=== PATIENT | male | born 1965 | race Caucasian/White ===

== ENCOUNTER → 2019-07-29 | Outpatient (CLI) | payer BC ==
[~2019-07-29] MED LIST: ATEN50TA PO; BENA40TA59 PO; DILT-10 PO
== END ==
LOC: WOUNDCARE 08:06
PROVIDERS: ATTEND Nurse Practitioner
DX: L97.523 Non-pressure chronic ulcer of other part of left foot with necrosis of muscle (principal); L89.893 Pressure ulcer of other site, stage 3
CPT/HCPCS: 11042

== ENCOUNTER → 2019-07-29 | Outpatient (CLI) | payer BC ==
[2019-07-29 09:54] LABS: BASOPHILS % (AUTO) 0 % (0-10); EOSINOPHILS # (AUTO) 0.2 10^3/uL (0.0-0.3); EOSINOPHILS % (AUTO) 3 % (0-10); HEMATOCRIT 43 % (40-54); HEMOGLOBIN 15.1 G/DL (13.3-17.7); LYMPHOCYTES # (AUTO) 1.9 X 10^3 (1.0-4.0); LYMPHOCYTES % (AUTO) 20 % (12-44); MEAN CORPUSCULAR HEMOGLOBIN 34 PG (25-34); MEAN CORPUSCULAR HGB CONC 35 G/DL (32-36); MEAN CORPUSCULAR VOLUME 97 FL (80-99); MEAN PLATELET VOLUME 9.6 FL (7.4-10.4); MONOCYTES # (AUTO) 0.5 X 10^3 (0.0-1.0); MONOCYTES % (AUTO) 5 % (0-12); NEUTROPHILS # (AUTO) 6.7 X 10^3 (1.8-7.8); NEUTROPHILS % (AUTO) 72 % (42-75); PLATELET COUNT 210 10^3/uL (130-400); RED CELL DISTRIBUTION WIDTH 12.3 % (10.0-14.5); WHITE BLOOD COUNT 9.3 10^3/uL (4.3-11.0)
[2019-07-29 10:09] LABS: BUN/CREATININE RATIO 20; CALCIUM 9.5 MG/DL (8.5-10.1); CARBON DIOXIDE 25 MMOL/L (21-32); CHLORIDE 108 MMOL/L (98-107); CREATININE SERUM 0.91 MG/DL (0.60-1.30); GFR ESTIMATED > 60; GLUCOSE 99 MG/DL (70-105); POTASSIUM 4.3 MMOL/L (3.6-5.0); SODIUM 142 MMOL/L (135-145)
== END ==
LOC: LAB 09:42
PROVIDERS: ATTEND Nurse Practitioner
DX: L97.523 Non-pressure chronic ulcer of other part of left foot with necrosis of muscle (principal); L89.893 Pressure ulcer of other site, stage 3
CPT/HCPCS: 36415; 80048; 84134; 85025

== ENCOUNTER → 2019-08-04 | Outpatient (CLI) | payer BC | LOC: WOUNDCARE 10:13 | PROVIDERS: ATTEND Surgery | DX: I96 Gangrene, not elsewhere classified (principal); L97.522 Non-pressure chronic ulcer of other part of left foot with fat layer exposed; G60.8 Other hereditary and idiopathic neuropathies | CPT/HCPCS: 11042; 87070; 87077; 87205 ==

== ENCOUNTER → 2019-08-12 | Outpatient (CLI) | payer BC | LOC: WOUNDCARE 10:52 | PROVIDERS: ATTEND Nurse Practitioner | DX: I96 Gangrene, not elsewhere classified (principal); L97.522 Non-pressure chronic ulcer of other part of left foot with fat layer exposed; G60.8 Other hereditary and idiopathic neuropathies | CPT/HCPCS: 11042 ==

== ENCOUNTER → 2019-08-19 | Outpatient (CLI) | payer BC | LOC: WOUNDCARE 10:45 | PROVIDERS: ATTEND Nurse Practitioner | DX: I96 Gangrene, not elsewhere classified (principal); L97.522 Non-pressure chronic ulcer of other part of left foot with fat layer exposed; G60.8 Other hereditary and idiopathic neuropathies | CPT/HCPCS: 11042 ==

== ENCOUNTER → 2019-08-26 | Outpatient (CLI) | payer BC | LOC: WOUNDCARE 10:46 | PROVIDERS: ATTEND Nurse Practitioner | DX: L97.522 Non-pressure chronic ulcer of other part of left foot with fat layer exposed (principal); G60.9 Hereditary and idiopathic neuropathy, unspecified; I96 Gangrene, not elsewhere classified | CPT/HCPCS: 11042 ==

== ENCOUNTER → 2019-08-28 | Outpatient (CLI) | payer BC | LOC: WOUNDCARE 09:51 | PROVIDERS: ATTEND Nurse Practitioner | DX: L97.522 Non-pressure chronic ulcer of other part of left foot with fat layer exposed (principal); G60.8 Other hereditary and idiopathic neuropathies; I96 Gangrene, not elsewhere classified | CPT/HCPCS: 29445 ==

== ENCOUNTER → 2019-09-02 | Outpatient (CLI) | payer BC | LOC: WOUNDCARE 10:49 | PROVIDERS: ATTEND Nurse Practitioner | DX: L97.522 Non-pressure chronic ulcer of other part of left foot with fat layer exposed (principal); G60.8 Other hereditary and idiopathic neuropathies; I96 Gangrene, not elsewhere classified | CPT/HCPCS: 11042 ==

== ENCOUNTER → 2019-09-09 | Outpatient (CLI) | payer BC | LOC: WOUNDCARE 10:53 | PROVIDERS: ATTEND Nurse Practitioner | DX: I96 Gangrene, not elsewhere classified (principal); L97.522 Non-pressure chronic ulcer of other part of left foot with fat layer exposed; G60.8 Other hereditary and idiopathic neuropathies | CPT/HCPCS: 11042 ==

== ENCOUNTER → 2019-09-16 | Outpatient (CLI) | payer BC | LOC: WOUNDCARE 10:55 | PROVIDERS: ATTEND Nurse Practitioner | DX: L97.522 Non-pressure chronic ulcer of other part of left foot with fat layer exposed (principal); G60.8 Other hereditary and idiopathic neuropathies; I96 Gangrene, not elsewhere classified | CPT/HCPCS: 11042 ==

== ENCOUNTER → 2019-09-23 | Outpatient (CLI) | payer BC | LOC: WOUNDCARE 10:45 | PROVIDERS: ATTEND Nurse Practitioner | DX: L97.522 Non-pressure chronic ulcer of other part of left foot with fat layer exposed (principal); G60.8 Other hereditary and idiopathic neuropathies; I96 Gangrene, not elsewhere classified | CPT/HCPCS: 11042 ==

== ENCOUNTER → 2019-09-30 | Outpatient (CLI) | payer BC | LOC: WOUNDCARE 10:55 | PROVIDERS: ATTEND Nurse Practitioner | DX: L97.522 Non-pressure chronic ulcer of other part of left foot with fat layer exposed (principal); G60.8 Other hereditary and idiopathic neuropathies; I96 Gangrene, not elsewhere classified ==

== ENCOUNTER → 2019-10-07 | Outpatient (CLI) | payer BC | LOC: WOUNDCARE 10:55 | PROVIDERS: ATTEND Nurse Practitioner | DX: L97.522 Non-pressure chronic ulcer of other part of left foot with fat layer exposed (principal); G60.8 Other hereditary and idiopathic neuropathies | CPT/HCPCS: 97597 ==

== ENCOUNTER → 2019-10-14 | Outpatient (CLI) | payer BC | LOC: WOUNDCARE 10:56 | PROVIDERS: ATTEND Nurse Practitioner | DX: I96 Gangrene, not elsewhere classified (principal); L97.522 Non-pressure chronic ulcer of other part of left foot with fat layer exposed; G60.8 Other hereditary and idiopathic neuropathies | CPT/HCPCS: 99212 ==

== ENCOUNTER → 2019-10-28 | Outpatient (CLI) | payer BC | LOC: WOUNDCARE 08:13 | PROVIDERS: ATTEND Nurse Practitioner | DX: I96 Gangrene, not elsewhere classified (principal); L97.522 Non-pressure chronic ulcer of other part of left foot with fat layer exposed; G60.8 Other hereditary and idiopathic neuropathies | CPT/HCPCS: 99213 ==

== ENCOUNTER → 2021-04-18 | Day surgery (SDC) | payer BC ==
[2021-04-18] VITALS (10 sets, daily range): BP systolic 93–131; BP diastolic 49–89
[~2021-04-18] VITALS: Ht 193 cm; Wt 113.5 kg
[~2021-04-18] MED LIST changes: +ACHD5005 PO; +ALLO300T2 PO; +ATEN25TA PO; +ATOR80TA64 PO; +BUPIVACAINE 0.25% 30 ML (SENSORCAINE) VIAL ONE; +C,E,1CAP PO; +CATHETER FLUSH 10 ML SYR IV PRN; +DILT300C49 PO; +EZET10TA49 PO; +HYDROcodone/APAP 5 MG/325 MG (LORTAB) TAB PO PRN; +LACTATED RINGERS 1,000 ML IV PRN; +LACTATED RINGERS 1,000 ML IV SCH; +LIDOCAINE/EPI 1%-1:100,000 (XYLOCAINE) 20ML ONE; +MELO15TA39 PO; +MEPERIDINE (DEMEROL) INJ 50 MG/ML IVP ONE; +ONDANSETRON 4 MG/2 ML (SDV) Z0FRAN IVP PRN; +VANCOMYCIN INJECTION 1,000 MG in NS (IVPB) 250 ML IV SCH; +fentaNYL INJ 100 MCG/2 ML AMP IVP ONE; +morphine INJ 10 MG/ML 1ML (SYR OR VIAL) IVP ONE
--- NOTE | 2021-04-18 07:37 | Progress Note-Pre Operative ---
Pre-Operative Progress Note H&P Reviewed The H&P was reviewed, patient examined and no changes noted. Date Seen by Provider: April 18, 2021 Time Seen by Provider: 07:36 Date H&P Reviewed: April 18, 2021 Time H&P Reviewed: 07:36 Pre-Operative Diagnosis: Hypertrophic Sesamoid, left ALFRED ROY Q DPDenita April 18, 2021 07:37
--- NOTE | 2021-04-18 08:40 | Progress Note-Post Operative ---
Post-Operative Progess Note Surgeon (s)/Appliance Painter And Refinisher (s) Surgeon ALFRED ROY DPM Appliance Painter And Refinisher: None Pre-Operative Diagnosis Hypertrophic Sesamoid, left Post-Operative Diagnosis Same Procedure & Operative Findings Date of Procedure 04/18/21 Procedure Performed/Findings Partial Medial Sesamoidectomy, left foot Anesthesia Type General Estimated Blood Loss Estimated blood loss (mL): Minimal Specimens/Packing Specimens Removed Portion of left medial sesamoid ALFRED ROY DPM April 18, 2021 08:40
--- NOTE | 2021-04-18 09:51 | Diagnostic Imaging Report ---
INDICATION: Post operative left foot. TECHNIQUE: Two views of the left foot. CORRELATION STUDY: 07/18/2019. FINDINGS: Bandage material over the foot is present obscuring detail. A few small gas collections are noted projecting along the inferior aspect below the metatarsal heads. There does appear to be suggestion of slight resection at the level of the sesamoid bone of the great toe. Alignment of the osseous structures is intact. Slight osteophyte formation at the interphalangeal joint of the great toe. Degenerative changes with spurring about the talonavicular articulation. Prominent spur-like formation at the plantar aspect of the calcaneus. IMPRESSION: Surgical changes at the plantar aspect of the foot. Likely partial resection of the sesamoid bone of the great toe. Dictated by: Dictated on workstation # [id number]
--- NOTE | 2021-04-18 11:02 | Anesthesia-General Post-Op ---
General Patient Condition Mental Status/LOC: Same as Preop Cardiovascular: Satisfactory Nausea/Vomiting: Absent Respiratory: Satisfactory Pain: Controlled Complications: Absent Post Op Complications Complications None Follow Up Care/Instructions Patient Instructions None needed. Anesthesia/Patient Condition Patient Condition Patient is doing well, no complaints, stable vital signs, no apparent adverse anesthesia problems. No complications reported per nursing. CAREY FERNANDES CRNA April 18, 2021 11:02
--- NOTE | 2021-04-18 13:36 | OPERATIVE REPORT ---
DATE OF SERVICE: 04/18/2021 SURGEON: Keeley Roy DPM. PREOPERATIVE DIAGNOSIS: Hypertrophic medial sesamoid, left foot. POSTOPERATIVE DIAGNOSIS: Hypertrophic medial sesamoid, left foot. PROCEDURE: Partial sesamoidectomy medial sesamoid, left foot. WOUND CLASS: Clean. ANESTHESIA: General. HEMOSTASIS: Pneumatic thigh tourniquet at 300 mmHg. 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 Once the wound was finally healed, we discussed options including conservative and surgical treatment. He is agreeable to surgical intervention after risks and complications were discussed at length. No guarantees were extended to the patient and he is willing to proceed. DESCRIPTION OF PROCEDURE: The patient was brought back to the operating table, placed in secure supine position. Appropriate timeout was performed. A pneumatic thigh tourniquet was placed on the left lower extremity over several layers of padding. A general anesthetic was then induced. Local anesthetic was injected to the left foot in a Joy block utilizing aseptic technique, which included 10 mL of 1:1 mixture of 1% Xylocaine, 0.5% Marcaine. The left foot was then prepped and draped in normal sterile manner. The left foot was then elevated and allowed to exsanguinate after which the tourniquet was inflated to 300 mmHg. Attention was then directed to the medial aspect of the left first metatarsal head area where a 2.5 cm longitudinal linear incision was created. The incision was deepened in the same plane with great care to identify and retract all vital neurovascular structures. Blunt dissection was carried out down to the medial aspect of the medial sesamoid of the first metatarsal head area. The tendon associated with the flexor hallucis brevis was identified and reflected exposing the medial and plantar aspect of the medial sesamoid, which was resected utilizing a power sagittal saw, removing the plantar third of the sesamoid. The area was further contoured and smoothed with a hand rasp. Percutaneous palpation noted good reduction of the bony prominence. The area was cleansed with copious amounts of normal saline after which closure was performed in layers. Deep closure was performed with 3-0 Vicryl, superficial with 4-0 Vicryl, skin closure with 4-0 Prolene in a horizontal mattress type stitch. Postoperative injection consisted of 8 mL of 0.5% Marcaine injected in local infusion to the surgical site. Postoperative dressing consisted of Betadine soaked Adaptic, sterile 4 x 4, sterile Kerlix all secured with a Coban wrap. The patient tolerated the anesthesia and procedure well, was transported from the operating room to the recovery area with vital signs stable and vascular status intact to all digits of the left foot. The patient is to follow up in my office in 10 days' period of time. In the meantime, he is to be nonweightbearing for the left forefoot with heel contact for balance and transfers only. We will see him back sooner if necessary. He was given a prescription for hydrocodone as well. Job ID: [id number] DocumentID: [id number] Dictated Date: 04/18/2021 08:47:41 Time Signal Wirer Date: 04/18/2021 13:36:13 Dictated By: KEELEY ROY DPM
== END ==
LOC: SDC 06:30
PROVIDERS: ATTEND Podiatrist Foot & Ankle Surgery
DX: M89.371 Hypertrophy of bone, right ankle and foot (principal); I10 Essential (primary) hypertension; G47.33 Obstructive sleep apnea (adult) (pediatric); L89.893 Pressure ulcer of other site, stage 3; E79.0 Hyperuricemia without signs of inflammatory arthritis and tophaceous disease; E78.1 Pure hyperglyceridemia; E66.8 Other obesity; Z68.30 Body mass index [BMI] 30.0-30.9, adult; Z79.899 Other long term (current) drug therapy
CPT/HCPCS: 73620; 87081; 88305; 88311

== ENCOUNTER → 2021-12-23 | Outpatient (CLI) | payer BC ==
[~2021-12-23] VITALS: Ht 193 cm; Wt 113.0 kg
[~2021-12-23] MED LIST changes: -BUPIVACAINE 0.25% 30 ML (SENSORCAINE) VIAL ONE; -CATHETER FLUSH 10 ML SYR IV PRN; -HYDROcodone/APAP 5 MG/325 MG (LORTAB) TAB PO PRN; -LACTATED RINGERS 1,000 ML IV PRN; -LACTATED RINGERS 1,000 ML IV SCH; -LIDOCAINE/EPI 1%-1:100,000 (XYLOCAINE) 20ML ONE; -MEPERIDINE (DEMEROL) INJ 50 MG/ML IVP ONE; -ONDANSETRON 4 MG/2 ML (SDV) Z0FRAN IVP PRN; +REGADENOSON 0.4 MG/5 ML SYR (LEXISCAN) IV ONE; -VANCOMYCIN INJECTION 1,000 MG in NS (IVPB) 250 ML IV SCH; -fentaNYL INJ 100 MCG/2 ML AMP IVP ONE; -morphine INJ 10 MG/ML 1ML (SYR OR VIAL) IVP ONE
[2021-12-23] MEDS: CATHETER FLUSH 10 ML SYR IV PRN ×2 (07:09→08:11)
[2021-12-23 08:07] VITALS: BP 144/106
--- NOTE | 2021-12-23 13:01 | Cardiology Stress Test Report ---
Stress Test Report Date of Procedure/Referring: Date of Procedure: Dec 23, 2021 PCP Leigh Lozano DO Admitting Physician Leigh Lozano DO Indications: CAD Baseline Vital Signs Vital Signs Date Time Temp Pulse Resp B/P (MAP) Pulse Ox O2 Delivery O2 Flow Rate FiO2 12/23/21 08:07 90 144/106 (119) 97 Room Air Summary: Patient receive a resting and stress dose of Myoview, images were acquired and reviewed in the short axis view, horizontal long axis view and vertical long axis view. TID: 1.18 SSS: 6 SDS: 5 EF: 53 1. Diaphragmatic attenuation with reversible ischemia involving the mid to apical inferior wall 2. Normal left ventricular size, ejection fraction 53% Copy Copies To 1: LEIGH LOZANO BASHAR J MD Dec 23, 2021 13:01
== END ==
LOC: CARD 07:00
PROVIDERS: ATTEND Internal Medicine
DX: I25.10 Atherosclerotic heart disease of native coronary artery without angina pectoris (principal)
CPT/HCPCS: 78452; 93017; A9502

== ENCOUNTER → 2022-03-14 | Outpatient (CLI) | payer BC ==
[~2022-03-14] MED LIST changes: -REGADENOSON 0.4 MG/5 ML SYR (LEXISCAN) IV ONE
--- NOTE | 2022-03-14 17:48 | Diagnostic Imaging Report ---
CLINICAL INDICATION: Patient with atherosclerotic heart disease of [place] coronary artery without angina pectoris. Patient has stent in LAD. Comparison: None Exam: Real-time ultrasound carotid Doppler duplex imaging is performed bilaterally with multiple real-time grayscale images obtained in various projections. Additional spectral analysis and color Doppler duple images were also obtained. Peak systolic velocity, ICA/CCA peak systolic ratio, spectral analysis, and vascular morphology are studied. Findings: ARTERY VELOCITY Right Left CCA 1.03 m/s 1.07 m/s ICA 0.66 m/s 0.84 m/s ECA 1.07 m/s 0.99 m/s ICA/CCA 0.6 0.9 VERT.ART Antegrade Antegrade There is mild bilateral carotid artery atherosclerotic disease. Impression: There is no grayscale or Doppler evidence of significant vascular stenosis. Dictated by: Dictated on workstation # [id number]
== END ==
LOC: RAD 14:45
PROVIDERS: ATTEND Internal Medicine
DX: I25.10 Atherosclerotic heart disease of native coronary artery without angina pectoris (principal)
CPT/HCPCS: 93880

== ENCOUNTER → 2023-10-22 | Outpatient (CLI) | payer BC ==
[~2023-10-22] MED LIST changes: +DILT300C38 PO; -DILT300C49 PO
[2023-10-22 12:22] LABS: BASOPHILS # (AUTO) 0.1 10^3/uL (0.0-0.1); BASOPHILS % (AUTO) 1 % (0-10); EOSINOPHILS # (AUTO) 0.3 10^3/uL (0.0-0.3); EOSINOPHILS % (AUTO) 2 % (0-10); HEMATOCRIT 45 % (40-54); HEMOGLOBIN 15.3 g/dL (13.3-17.7); LYMPHOCYTES # (AUTO) 1.4 10^3/uL (1.0-4.0); LYMPHOCYTES % (AUTO) 12 % (12-44); MEAN CORPUSCULAR HEMOGLOBIN 32 pg (25-34); MEAN CORPUSCULAR HGB CONC 34 g/dL (32-36); MEAN CORPUSCULAR VOLUME 94 fL (80-99); MEAN PLATELET VOLUME 10.6 fL (9.0-12.2); MONOCYTES # (AUTO) 0.7 10^3/uL (0.0-1.0); MONOCYTES % (AUTO) 6 % (0-12); NEUTROPHILS # (AUTO) 9.5 10^3/uL (1.8-7.8); NEUTROPHILS % (AUTO) 79 % (42-75); PLATELET COUNT 217 10^3/uL (130-400); WHITE BLOOD COUNT 11.9 10^3/uL (4.3-11.0)
[2023-10-22 12:45] LABS: ALANINE AMINOTRANSFERASE 20 U/L (0-55); ALBUMIN 4.6 GM/DL (3.2-4.5); ALKALINE PHOSPHATASE 121 U/L (40-136); BILIRUBIN,TOTAL 1.2 MG/DL (0.1-1.0); BUN/CREATININE RATIO 14; CALCIUM 9.8 MG/DL (8.5-10.1); CARBON DIOXIDE 25 MMOL/L (21-32); CHLORIDE 105 MMOL/L (98-107); CREATININE SERUM 1.25 MG/DL (0.60-1.30); GFR ESTIMATED 66; GLUCOSE 104 MG/DL (70-105); POTASSIUM 4.8 MMOL/L (3.6-5.0); SODIUM 139 MMOL/L (135-145); TOTAL PROTEIN 8.4 GM/DL (6.4-8.2)
[2023-10-22 12:53] LABS: ERYTHROCYTE SEDIMENTATION RATE 47 MM/HR (0-30)
== END ==
LOC: WOUNDCARE 10:44
PROVIDERS: ATTEND Family Medicine
DX: I96 Gangrene, not elsewhere classified (principal); L97.512 Non-pressure chronic ulcer of other part of right foot with fat layer exposed; G90.09 Other idiopathic peripheral autonomic neuropathy; M10.071 Idiopathic gout, right ankle and foot; L03.115 Cellulitis of right lower limb
CPT/HCPCS: 11042; 11045; 80053; 83036; 85025; 85652; 86141; 87070; 87205; A6197; G0463; L4386; 36415; 87077

== ENCOUNTER → 2023-10-30 | Outpatient (CLI) | payer BC ==
[~2023-10-30] MED LIST changes: +GADOTERATE 0.5 MMOL/ML (CLARISCAN) 20 ML VIAL IV ONE
--- NOTE | 2023-10-30 14:40 | Diagnostic Imaging Report ---
Exam: MRI right foot without and with intravenous contrast. Date: October 30, 2023. Indication: 58-year-old male, right foot ulcer. Evaluation for osteomyelitis. Comparison: None. Technique: Multiple pre and postcontrast MRI sequences of the right foot were obtained. Findings: There is a skin contour abnormality medially located in the region of the first metatarsophalangeal joint. There is fluid along the skin surface at this location. There is underlying subcutaneous edema and enhancement. There is no identified focal fluid collection or abscess. There is also a more prominent dorsal skin defect at the level of the first distal phalanx without subjacent abscess. There is no T1 marrow signal loss, bone destruction, or prominent abnormal marrow edema. There is no acute fracture, bone contusion, or stress reaction. The Lisfranc ligament proper is intact. The imaged portions of the anterior extensor tendons, posterior flexor tendons, and peroneal tendons are intact. There is diffuse fatty muscle atrophy most compatible with polyneuropathy. Impression: 1. A soft tissue defect medially near the level of the first metatarsophalangeal joint and dorsally at the level of the first distal phalanx. There is underlying nonspecific soft tissue edema without drainable fluid collection or abscess. 2. No evidence of osteomyelitis or other acute osseous abnormality. 3. Diffuse fatty muscle atrophy most compatible with polyneuropathy. 4. Intact imaged tendons. 5. No evidence of septic arthritis. Dictated by: Dictated on workstation # [id number]
== END ==
LOC: RAD 12:30
PROVIDERS: ATTEND Family Medicine
DX: L97.512 Non-pressure chronic ulcer of other part of right foot with fat layer exposed (principal); G90.09 Other idiopathic peripheral autonomic neuropathy; M10.071 Idiopathic gout, right ankle and foot; L03.115 Cellulitis of right lower limb
CPT/HCPCS: 73720

== ENCOUNTER → 2023-10-30 | Outpatient (CLI) | payer BC ==
[~2023-10-30] MED LIST changes: -GADOTERATE 0.5 MMOL/ML (CLARISCAN) 20 ML VIAL IV ONE
== END ==
LOC: WOUNDCARE 13:09
PROVIDERS: ATTEND Family Medicine
DX: I96 Gangrene, not elsewhere classified (principal); L97.512 Non-pressure chronic ulcer of other part of right foot with fat layer exposed; G90.09 Other idiopathic peripheral autonomic neuropathy; M10.071 Idiopathic gout, right ankle and foot; L03.115 Cellulitis of right lower limb; A49.01 Methicillin susceptible Staphylococcus aureus infection, unspecified site
CPT/HCPCS: 11042; G0463